=== PATIENT | male | born 1985 | race Caucasian/White ===

== ENCOUNTER → 2020-06-21 | Outpatient (CLI) | payer BC, SELFPAY ==
[2020-06-21 08:25] VITALS: BMI 24.7
[2020-06-21 10:17] LABS: Bacteria 0 SEEN /hpf (None Seen); Mucous, Urine 0 SEEN /hpf (<or=2+); Red Blood Cells-Urine 0 SEEN /hpf (0-5); Squamous Epithelial Cells - UA 0 SEEN /hpf (0-5); White Blood Cells 0 SEEN /hpf (0-5)
[2020-06-21 12:26] LABS: Color, Urine Straw (Yellow); Glucose, Dipstick Normal (Normal); Ketone-Dipstick Negative (Negative); Leukocyte Esterase-Dipstick Negative /ul (Negative); Nitrite-Dipstick Negative (Negative); Occult Blood-Urine 10 /ul (Negative); Protein-Dipstick Negative (Negative); Specific Gravity, Urine 1.005 (1.002-1.030); Urine Bilirubin Dipstick Negative (Negative); Urine Clarity Clear (Clear); Urine Urobilinogen Normal (Normal)
== END | disposition home or self-care (01) ==
LOC: LABSPEC 10:17
PROVIDERS: PCP Internal Medicine; Referring Provider Internal Medicine; Visit Provider Internal Medicine
DX: R10.31 Right lower quadrant pain (principal); R82.998 Other abnormal findings in urine
CPT/HCPCS: 81001

== ENCOUNTER → 2020-06-26 09:48 | Outpatient (CLI) | payer BC, SELFPAY ==
[2020-06-21 08:25] VITALS: BMI 24.7
--- NOTE | 2020-06-26 09:50 | US_ITS ---
STUDY: RENAL ULTRASOUND - COMPLETE REASON FOR EXAM: Male, 34 years old. HEMATURIA TECHNIQUE: Ultrasound evaluation of the kidneys was performed with real-time and static escobedo-scale imaging. COMPARISON: None. FINDINGS: RIGHT KIDNEY: Normal location of the right kidney, which is normal in size. The right kidney measures 9.5 cm x 5.7 cm x 4.9 cm. There is a normal cortex of the right kidney. The renal cortex measures 1.2 cm. There is no right renal mass or cyst. There are no right renal calculi. There is an extra-renal pelvis of the right kidney. There is no distention of the renal calyces. DISTAL RIGHT URETER: There is non-visualization of the distal right ureter. There is no demonstrated right ureterovesical junction calculus. There is a visualized right ureteral jet. LEFT KIDNEY: Normal location of the left kidney, which is normal in size. The left kidney measures 10.5 cm x 4.3 sono by 5.2 cm. There is a normal cortex of the left kidney. The renal cortex measures 1.3 cm. There is no left renal mass or cyst. There are no left renal calculi. There is no left hydronephrosis. DISTAL LEFT URETER: There is non-visualization of the distal left ureter. There is no demonstrated left ureterovesical junction calculus. There is a visualized left ureteral jet. BLADDER: The distended urinary bladder has a volume of 395 ml. There is a normal wall thickness of the distended urinary bladder. There is no demonstrated mass within the urinary bladder. There are no demonstrated bladder calculi. US/Kidney and Bladder IMPRESSION: Normal ultrasound of the kidneys and urinary bladder. Electronically Signed: Maxime Estrada, at 13:33 EST , Service support ,
== END ==
PROVIDERS: PCP Internal Medicine; Referring Provider Internal Medicine; Visit Provider Internal Medicine
DX: R31.9 Hematuria, unspecified (principal)
CPT/HCPCS: 76770

== ENCOUNTER → 2020-07-03 10:36 | Outpatient (CLI) | payer BC, SELFPAY ==
[2020-06-21 08:25] VITALS: BMI 24.7
[2020-07-03 10:37] LABS: Bacteria 0 SEEN /hpf (None Seen); Mucous, Urine 0 SEEN /hpf (<or=2+); Red Blood Cells-Urine 0 SEEN /hpf (0-5); Squamous Epithelial Cells - UA 0 SEEN /hpf (0-5); White Blood Cells 0 SEEN /hpf (0-5)
[2020-07-03 12:25] LABS: Color, Urine Yellow (Yellow); Glucose, Dipstick Normal (Normal); Ketone-Dipstick Negative (Negative); Leukocyte Esterase-Dipstick Negative /ul (Negative); Nitrite-Dipstick Negative (Negative); Occult Blood-Urine 50 /ul (Negative); Protein-Dipstick Negative (Negative); Specific Gravity, Urine 1.005 (1.002-1.030); Urine Bilirubin Dipstick Negative (Negative); Urine Clarity Clear (Clear); Urine Urobilinogen Normal (Normal); Urine pH 6.5 (5.0 - 8.0)
== END ==
PROVIDERS: PCP Internal Medicine; Visit Provider Internal Medicine
DX: R31.29 Other microscopic hematuria (principal)
CPT/HCPCS: 81001

== ENCOUNTER 2020-10-20 13:33 | Outpatient (RCR) | payer BC, SELFPAY ==
[2020-07-05 14:21] VITALS: BMI 24.9
== END 2021-01-02 23:59 ==
LOC: IMMUN 13:33
PROVIDERS: PCP Internal Medicine; Referring Provider Family Medicine; Visit Provider Family Medicine
DX: Z23 Encounter for immunization (principal)
CPT/HCPCS: 0001A; 0002A; 91300

== ENCOUNTER → 2020-11-08 13:45 | Outpatient (CLI) | payer BC, SELFPAY ==
[2020-07-05 14:21] VITALS: BMI 24.9
[2020-11-08 13:48] LABS: Bacteria 0 SEEN /hpf (None Seen); Mucous, Urine 0 SEEN /hpf (<or=2+); Squamous Epithelial Cells - UA 0 SEEN /hpf (0-5)
--- NOTE | 2020-11-08 14:26 | US_ITS ---
STUDY: RENAL ULTRASOUND - COMPLETE REASON FOR EXAM: Male, 35 years old. right lower quad pain, blood in urine TECHNIQUE: Ultrasound evaluation of the kidneys was performed with real-time and static escobedo-scale imaging. COMPARISON: 06/26/2020 FINDINGS: RIGHT KIDNEY: Normal location of the right kidney, which is normal in size. The right kidney measures 9.8 cm. There is a normal cortex of the right kidney. The renal cortex measures 1.4 cm. There is no right renal mass or cyst. Left renal stone in the right renal pelvis with mild hydronephrosis. Correlation with CT would be useful. DISTAL RIGHT URETER: There is non-visualization of the distal right ureter. There is no demonstrated right ureterovesical junction calculus. There is a visualized right ureteral jet. LEFT KIDNEY: Normal location of the left kidney, which is normal in size. The left kidney measures 10.5 cm. There is a normal cortex of the left kidney. The renal cortex measures 1.9 cm. There is no left renal mass or cyst. There are no left renal calculi. There is no left hydronephrosis. DISTAL LEFT URETER: There is non-visualization of the distal left ureter. There is no demonstrated left ureterovesical junction calculus. There is a visualized left ureteral jet. BLADDER: The distended urinary bladder has a volume of 348 ml. The empty urinary bladder has a volume of ml. There is a normal wall thickness of the distended urinary bladder. There is no demonstrated mass within the urinary bladder. There are no demonstrated bladder calculi. US/Kidney and Bladder IMPRESSION: Suspect obstructing stone in the right renal pelvis with mild hydronephrosis. Correlation with stone protocol CT is recommended. Electronically Signed: Marcelo Pitts MD at 15:44 EDT Tel , Service support ,
[2020-11-08 15:12] LABS: Color, Urine Yellow (Yellow); Glucose, Dipstick Normal (Normal); Ketone-Dipstick Negative (Negative); Leukocyte Esterase-Dipstick Negative /ul (Negative); Nitrite-Dipstick Negative (Negative); Occult Blood-Urine 250 /ul (Negative); Protein-Dipstick Negative (Negative); Specific Gravity, Urine 1.005 (1.002-1.030); Urine Bilirubin Dipstick Negative (Negative); Urine Clarity Clear (Clear); Urine Urobilinogen Normal (Normal)
[2020-11-08 15:44] LABS: Red Blood Cells-Urine 10-25 SEEN /hpf (0-5); White Blood Cells 0-5 SEEN /hpf (0-5)
== END ==
PROVIDERS: PCP Internal Medicine; Referring Provider Internal Medicine; Visit Provider Internal Medicine
DX: R31.9 Hematuria, unspecified (principal)
CPT/HCPCS: 76770; 81001

== ENCOUNTER → 2020-11-09 12:25 | Outpatient (CLI) | payer BC, SELFPAY ==
[2020-07-05 14:21] VITALS: BMI 24.9
--- NOTE | 2020-11-09 12:27 | RAD_ITS ---
STUDY: X-RAY - ABDOMEN/PELVIS REASON FOR EXAM: Male, 35 years old. CALCULUS OF KIDNEY TECHNIQUE: Single AP view of the abdomen / pelvis. COMPARISON: None. FINDINGS: Normal visualized lung bases. There is an unremarkable bowel gas pattern. 10 mm calcific opacity medial to the right kidney worrisome for right renal stones possibly within the renal pelvis. Correlation with CT would be useful. Normal soft tissue structures. Normal visualized osseous structures. RAD/Abdomen Single View IMPRESSION: Suspect 10 mm right renal stone possibly in the renal pelvis. CT would be useful. Electronically Signed: Marcelo Pitts MD at 12:50 EDT Tel , Service support ,
== END ==
PROVIDERS: PCP Internal Medicine; Referring Provider Nurse Practitioner Adult Health; Visit Provider Nurse Practitioner Adult Health
DX: N20.0 Calculus of kidney (principal)
CPT/HCPCS: 74018

== ENCOUNTER 2020-11-15 13:23 | Day surgery (SDC) | payer BC, SELFPAY ==
[2020-07-05 14:21] VITALS: BMI 24.9
[2020-11-15] VITALS (7 sets, daily range): BP systolic 124–138; BP diastolic 69–113; PULSE 63–77; RESP 14–16; TEMP 36.5–37.6; O2SAT 100; BMI 24.5
[2020-11-15] MEDS: Lactated Ringers 1,000 ML 100 ML IV (14:00)
[2020-11-15] MEDS: Cefazolin 2 GM in 0.9% Normal Saline 100 ML IV (16:43)
--- NOTE | 2020-11-15 16:45 | PCM.HP.STD ---
Problem List (1) Obstruction of right ureteropelvic junction (UPJ) due to stone Status: Acute History of Present Illness Date of Admission: 11/15/20 Chief Complaint: Right kidney stone obstructive The patient is a 35 year old male with a history of Crohn's who has obstruction on the right proximal ureter with a kidney stone plan to treat the stone today with shockwave lithotripsy possible stent Past Medical History Past Medical History (Chronic Problems): Chronic Problems (Last Updated 06/15/20 @ 10:11 by Kim Morrison) Crohn's disease (Chronic) Seasonal allergies (Chronic) Medical History: Medical History (Last Updated 06/15/20 @ 10:11 by Kim Morrison) Crohn's disease (Chronic) K50.90 Seasonal allergies (Chronic) J30.2 Allergies Sulfa (Sulfonamide Antibiotics) Allergy (Intermediate, Verified 11/13/20 08:16) Hives Home Medications: Ambulatory Orders Medication Instructions Recorded NK 11/13/20 Surgical History: Surgical History (Last Updated 06/15/20 @ 10:12 by Kim Morrison) History of wisdom tooth extraction K08.409 Surgical History: no surgical history Smoking Status: Never smoker Tobacco Use: Non-smoker Review of Systems Constitutional: Denies: Chills, Fever, Weight Change HEENT: Denies: Head Aches, Sinus Congestion, Sinus Drainage Cardiovascular: Denies: Chest Pain, Palpitations Respiratory: Denies: Cough, Shortness of breath at rest, Sputum production Gastrointestinal: Denies: Abdominal Pain, Nausea, Vomiting Genitourinary: Denies: Dysuria Musculoskeletal: Denies: Joint Pain, Joint Tenderness Skin: Denies: Rash, Wounds Neurological: Denies: Numbness, Tingling, Focal weakness Psychiatric: Denies: Anxiety, Depression, Homicidal Ideations, Suicidal Ideations Hematologic/ Lymphatic: Denies: Easy Bruising, Easy Bleeding VTE Information - Inpt Only VTE Present on Admission: No - Physical Exam Vitals/I&O's: Vital Signs Temp Pulse Resp BP Pulse Ox 99.6 F H 75 14 124/84 H 100 11/15/20 13:46 11/15/20 13:46 11/15/20 13:46 11/15/20 13:46 11/15/20 13:46 Oxygen Delivery Method Room Air Weight: 75.2 kg Body Mass Index (BMI) 24.5 General: Alert, Oriented x3, Cooperative HEENT: Atraumatic, PERRLA, EOMI, Normocephalic Neck: Supple, No JVD, Negative Carotid Bruits Lungs: Clear to auscultation, Normal air movement Cardiovascular: Regular rate, No murmurs Abdomen: Bowel Sounds Present, Soft, Non Tender Extremities: No edema, Capillary Refill Less than 3 Seconds Skin: No rashes, No breakdown Musculoskeletal: No Tenderness to Palpation of Joints or Extremities Neurological: Cranial nerves II-XII grossly intact Psych/Mental Status: Normal Affect, Appropriate Microbiology Past 72 Hours 11/14/20 13:05 Interface Orders SARS-CoV-2 Antigen (Rapid) - Final Current Medications Lactated Ringer's () 1,000 mls @ 100 mls/hr IV .Q10H RUDDY Last Admin: 11/15/20 14:00 Dose: 100 mls/hr Documented by: Assessment/Plan All Active Problems (Last Updated 06/15/20 @ 10:11 by Kim Morrison) Obstruction of right ureteropelvic junction (UPJ) due to stone (Acute) Acute sinusitis, unspecified (Acute) URI (upper respiratory infection) (Acute) 35-year-old male with right UPJ stone plan to proceed with shockwave lithotripsy and stent placement, possible stent placement
--- NOTE | 2020-11-15 16:51 | PCM.DC.URO ---
Discharge Diet: No Restrictions Discharge Activity: Return to Normal Activity, May Not Drive - for 2 days. Additional Activity Instructions:: Please be aware that pain medications may cause nausea. You should typically eat light foods as you take your pain medication. Pain medication may cause constipation, if this is a problem for you, please discuss with your doctor. Call your doctor if your incision/area has: Sudden Increased Bleeding Suture Line Care: Avoid Pulling/Pushing, Avoid Pinching/Bending Allergies/Adverse Reactions: Allergies Sulfa (Sulfonamide Antibiotics) Allergy (Intermediate, Verified 11/13/20 08:16) Hives Medications to take at Discharge Cephalexin [Keflex] 500 mg PO Q8 #9 capsule 11/15/20 Hydrocodone Bitart/Apap 5-325 [[place] 5MG-325MG] 1 tablet PO Q4H PRN PRN 7 Days #20 tablet 11/15/20 The following prescriptions were given: Cephalexin [Keflex] 500 mg PO Q8 #9 capsule Transmission Status: Pending to [id number] Hydrocodone Bitart/Apap 5-325 [[place] 5MG-325MG] 1 tablet PO Q4H PRN PRN 7 Days #20 tablet PRN Reason: Pain Transmission Status: Received by [id number] Primary Care Physician: Debbie Crews MD [Primary Care Provider] - Test Results: Test results from this visit will be discussed in further detail at your follow-up appointment, if applicable. Please Follow Up With: Roberto Zhou MD When: please call to make an appointment.
--- NOTE | 2020-11-15 17:10 | OP.PCM_ITS ---
Problem List (1) Obstruction of right ureteropelvic junction (UPJ) due to stone Status: Acute Report of Operation Date of Procedure: 11/15/20 Pre-Operative Diagnosis: Right kidney stone Post-Operative Diagnosis: Same Surgery/Procedure Performed:: right extracorporeal shockwave lithotripsy Description of Surgical Findings:: Patient presents to the hospital for treatment of a kidney stone with shockwave lithotripsy. In the preoperative area and x-ray was done to confirm the location of the stone. The x-ray was reviewed and the stone location was reviewed. In the preoperative setting I spoke with the patient regarding the treatment of the stone how the treatment would be conducted and the expectations after surgery. The patient understands there is a risk of bleeding and infect ion. Also discussed the very rare risk of hematoma or damage to the kidney. We also discussed the risk that the shockwave machine will fail to break the stone adequately and that the patient may need other surgical procedures. We also discussed the possibility that the patient may need a stent after the procedure. After reviewing the procedure with the patient, the patient is signed the consent form all the patient's questions were addressed and was taken back to the operating room for treatment of a kidney stone. Patient was taken back to the operating room, patient was identified by the nursing staff, we identified the side of the treatment and the patient side of treatment had been marked by my initials. The patient underwent general anesthetic and was placed supine on the lithotripter table. We then used fluoroscopy to identify the stone on the Right side. We then positioned the patient under the lithotripter and we used triangulation technique to identify the location of the stone and then we made sure that the stone was engaged in the F2 focal point of F2 Donier lithoprior machine. Once the patient was positioned appropriately and the stone was identified and placed in the F2 focal point of the lithotripter machine we then proceeded with shockwave lithotripsy. In the beginning the shockwave was delivered at a rate of 90 shocks per minute, we monitor the EKG for any ectopy. The power was slowly increased to 5 kV and subsequently at the 7 kV. We then proceeded with the treatment we move the therapy had around during the treatment to make sure the stone stayed in the F2 focal point during the entire treatment. Once the stone had broken up completely then we stopped the treatment a total of about 3000 shockwaves were delivered to the stone under fluoroscopic guidance. At this point the patient's anesthetic was reversed patient was extubated and taken back to the PACU in stable condition. The patient was given instructions to call the office to make an a follow-up appointment. Type of Anesthesia:: General Drains: no stent - Admit VTE Documentation VTE Present on Admission: No VTE Mechan Device Prophylaxis: SCD's
[2020-11-15] MEDS: Ketorolac 15 MG/ML Vial IV (17:41)
[2020-11-15] MEDS: oxyCODONE 5 MG Tablet PO (18:29)
== END 2020-11-15 21:08 | disposition home or self-care (01) ==
LOC: SDC 13:24 → AC 13:25
PROVIDERS: PCP Internal Medicine; Referring Provider Urology; Visit Provider Urology
PROC: (CPT 50590; principal; 2020-11-15 15:05)
DX: N13.5 Crossing vessel and stricture of ureter without hydronephrosis (principal); N20.0 Calculus of kidney; K50.90 Crohn's disease, unspecified, without complications; J30.2 Other seasonal allergic rhinitis
CPT/HCPCS: 50590; 87426; C9803; J7120; J2405

== ENCOUNTER 2020-11-16 02:29 | Emergency (ER) | payer BC, SELFPAY ==
[2020-11-15 13:46] VITALS: BMI 24.5
[2020-11-16 02:29] VITALS: BP 143/82; PULSE 65; RESP 18; TEMP 36.4; O2SAT 100; BMI 24.9
[2020-11-16 02:32] VITALS: BP 143/82; PULSE 65; RESP 18; TEMP 36.4; O2SAT 100
--- NOTE | 2020-11-16 02:35 | ED.VIS.GEN ---
History of Present Illness Chief Complaint: Complaint Informant: Patient Narrative: 35-year-old male presents with concern for right-sided flank pain. Patient had lithotripsy done approximately 9 hours ago at this facility by urologist Dr. Davis. States that he was in considerable pain following the procedure which was controlled with IV pain medications. Is taken to pain pills since getting home and continues to have pain. Unable to eat or drink given the pain. Describes it as sharp and radiating. States he has been urinating normally. Denies any fever or chills. No history of lithotripsy in the past. Past Medical History - Allergies and Home Meds Allergies/Adverse Reactions: Allergies Sulfa (Sulfonamide Antibiotics) Allergy (Intermediate, Verified 11/16/20 02:33) Hives Primary Care Physician: Roberto Zhou MD [STAFF PHYSICIAN] - Keep Richard appointment Debbie Crews MD [Primary Care Provider] - 2 Days Prior records reviewed: Yes Past Medical History: None Surgical History: - - lithotripsy Lives: Spouse/ Significant Other Smoking Status: Never smoker Alcohol: None Drugs: None Review of Systems General: Denies: Chills, Fever, Sweats Eyes: Denies: Visual changes - bilaterally, Diplopia ENT: Denies: Rhinorrhea, Sore throat Cardiovascular: Denies: Chest pain, Palpitations Respiratory: Denies: Dyspnea, Cough, Dyspnea on exertion Gastrointestinal: Reports: Abdominal pain, Nausea. Denies: Vomiting, Diarrhea, Melena, Hematochezia Genitourinary: Denies: Dysuria, Hematuria, Frequency Musculoskeletal: Denies: Back pain, Extremity Pain Skin: Denies: Rash, Wounds Neurological: Denies: Headache, Weakness, Numbness Physical Exam Vital Signs/Narrative: Vital Signs Temp Pulse Resp BP Pulse Ox 11/16/20 02:32 97.6 F L 65 18 143/82 H 100 11/16/20 02:29 97.6 F L 65 18 143/82 H 100 General: Well nourished, Well developed, No Acute Distress Head: Normocephalic, Atraumatic Eyes: Perrl, EOMI ENT: Moist mucous membranes, No rhinorrhea Neck: Supple, Nontender Cardiovascular: Regular rate, Regular rhythm, No murmurs Respiratory: No distress, CTA bilaterally, Chest nontender Abdomen: Soft, Nontender, Nondistended, Normal bowel sounds Back: Nontender, Normal Inspection Extremities: Nontender, No edema Skin: Normal color, No rash Neurological: Alert, Oriented x3, Cranial nerves II-XII grossly intact, Normal Strength, Normal Sensation Psychological: Normal affect, Normal Mood Diagnostic/Tx/Re-eval - Medical Decision Making Patient appears well and nontoxic. Vital signs within normal limits. Benign abdominal exam. Patient given 1 L of normal saline, 1 mg of Dilaudid, and 15 mg of Toradol. On reevaluation of 032 patient is feeling much improved. Wishes to urinate before his discharge. Will follow up with Dr. Davis as scheduled. Stable at time of discharge. ED Disposition - Plan for ED Patient: Disposition: Home or Assisted Living Instructions: Shock Wave Lithotripsy Prescriptions: Ondansetron [Zofran Odt] 4 mg PO Q8H PRN PRN #10 tablet PRN Reason: Nausea Prescription Printed Referrals: Debbie Crews MD [Primary Care Provider] - 2 Days Roberto Zhou MD [STAFF PHYSICIAN] - Keep Richard appointment
[2020-11-16] MEDS: Ketorolac 15 MG/ML Vial IV (02:50)
[2020-11-16] MEDS: Ondansetron 4 MG/2 ML Vial IV (02:50)
[2020-11-16] MEDS: 0.9% Normal Saline 1,000 ML 1000 ML IV (02:51)
[2020-11-16] MEDS: HYDROmorphone 1 MG/ML Syringe IV (02:51)
== END 2020-11-16 04:02 | disposition home or self-care (01) ==
PROVIDERS: Emergency Provider Emergency Medicine; PCP Internal Medicine
DX: G89.18 Other acute postprocedural pain (principal); R10.9 Unspecified abdominal pain; R11.0 Nausea; Z98.890 Other specified postprocedural states
CPT/HCPCS: 96361; 96374; 96375; 99284; J2405

== ENCOUNTER → 2020-11-20 13:30 | Outpatient (CLI) | payer BC, SELFPAY ==
[2020-11-16 02:29] VITALS: BMI 24.9
--- NOTE | 2020-11-20 13:34 | RAD_ITS ---
STUDY: X-RAY - ABDOMEN/PELVIS REASON FOR EXAM: Male, 35 years old. POST KIDNEY STONE SURGERY TECHNIQUE: Single AP view of the abdomen / pelvis. COMPARISON: Comparison is made with prior study dated 11/09/2020. FINDINGS: Normal visualized lung bases. There is a moderate amount of colonic fecal material. The previously seen calculus in the region of the right renal pelvis now is in the right side of the pelvis. This measures 9.1 mm. Normal soft tissue structures. Normal visualized osseous structures. RAD/Abdomen Single View IMPRESSION: The previously seen right proximal calculus is now in the right hemipelvis. Electronically Signed: Maxime Estrada MD at 15:33 EDT , Service support ,
== END ==
PROVIDERS: PCP Internal Medicine; Referring Provider Urology; Visit Provider Urology
DX: N20.0 Calculus of kidney (principal); Z48.816 Encounter for surgical aftercare following surgery on the genitourinary system
CPT/HCPCS: 74018

== ENCOUNTER → 2021-01-01 13:09 | Outpatient (CLI) | payer BC, SELFPAY ==
--- NOTE | 2021-01-01 13:25 | RAD_ITS ---
STUDY: X-RAY - ABDOMEN/PELVIS REASON FOR EXAM: Male, 35 years old. CALCULUS OF KIDNEY TECHNIQUE: Single AP view of the abdomen / pelvis. COMPARISON: Comparison is made with prior study dated 11/20/2020. FINDINGS: Normal visualized lung bases. There is a moderate amount of colonic fecal material. The visualized liver, spleen and kidneys are grossly normal in size and morphology. Normal soft tissue structures. Normal visualized osseous structures. RAD/Abdomen Single View IMPRESSION: The previously seen calculus in the right hemipelvis is not present at this time. Electronically Signed: Maxime Estrada MD at 15:39 EDT , Service support ,
[2021-01-01 16:03] LABS: Anion Gap 7 (5-15); BUN 11 mg/dL (7-18); BUN/Creat Ratio 11.4 RATIO (10-20); Calcium,Total 9.4 mg/dL (8.5-10.1); Chloride 104 mmol/L (98-107); Creatinine, Serum 0.96 mg/dL (0.70-1.30); EST Glomerular Filtration Rate 95 mL/min (>60); Est Glom Filt Rate - Afr Amer 115 mL/min (>60); Glucose 87 mg/dL (74-106); Potassium 3.5 mmol/L (3.5-5.1); Sodium Level 139 mmol/L (136-145)
== END ==
PROVIDERS: PCP Internal Medicine; Referring Provider Urology; Visit Provider Urology
DX: N20.0 Calculus of kidney (principal)
CPT/HCPCS: 36415; 74018; 80048

== ENCOUNTER 2024-05-03 08:30 | Outpatient (RCR) | payer BC, SELFPAY ==
--- NOTE | 2024-04-06 08:57 | HP.PTEVAL ---
Patient's Visit Information Visit Information Visit Information: SVETLANA CARVAJAL is a 38 year old M referred to Physical Therapy by Dr. Debbie Crews MD with a diagnosis of Impingement of the R shoulder. Date of Evaluation: 04/06/24 Physical Therapist: STEFANI Brown Visit Plan Frequency: 2x /Week Duration: 4 Weeks Plan: 2X/week for 8 weeks for scapular stability, RC strength, postural exercises with HEP HEP: scapular retraction, Supine wand flexion, Mid Rows (blue), Corner stretch Subjective Subjective: Pt feels that he strained it doing a house remodel and then just took it easy and then a few weeks ago he was working on a project and the weed eating. The next day he moved his arm out to the R and got a pain down his arm. He has no pain right now. It took a week and half away to go away the last time. It does not feel anything major going on. He never felt like he got his strength back from the original injury. He has no neck pain. He has pain to just below the elbow. He is R handed. He can lay on that shoulder but he feels like that shoulder is weak. He reports that he sits with good posture and tries to stand more. Pain R shoulder pa: Pain Intensity (Out of 10): 0 Objective Objective: R handed: R mat making machine tender strength 85 and L 75 Shoulder AROM: WFL in all planes Posture: Rounded shoulders and increase PPT UE MMT: R shoulder flex 7.2 and L 8.5 R shoulder ABD 7 and L 7.1 R shoulder ER 11.4 and L 12.5 R shoulder IR 7.2 and L 10.4 Tight at end range flexion of B shoulders Balance/Special Test Scores Quick DASH Score: 2.5035 Goals Goal 1:: I HEP Goal Time Frame: 4-6 Weeks Goal 2:: Increase UE strength (UE MMT: R shoulder flex 7.2 and L 8.5 R shoulder ABD 7 and L 7.1 R shoulder ER 11.4 and L 12.5 R shoulder IR 7.2 and L 10.4) Goal Time Frame: 4-6 Weeks Goal 3:: Sit with upright posture during treatment sessions Goal Time Frame: 4-6 Weeks Goal 4:: No recurrent pain with reaching out to the side and opening up the car door Rehabilitation Potential Rehabilitation Potential: Good Anticipated Interventions Patient/Client Instruction: Educate patient on: Condition and Plan of Care For the Purpose of:: To decrease pain, To increase ROM, To improve nutrient delivery to tissue, To improve muscle performance and motor function, To improve ability to perform ADL's, To increase tolerance to activity/condition/position, To improve performance and independence with ADL's, To improve ability of physical actions for home/community/work/leisure, To improve health of tissue and To increase flexibility/ROM Therapeutic Exercise to Include: Strength training, Postural training, Flexibilty training, Passive ROM, Active ROM and Scapular Strength/Stabilization For the Purpose of:: To decrease pain, To increase ROM, To improve nutrient delivery to tissue, To increase oxygenation perfusion, To improve muscle performance and motor function, To improve ability to perform ADL's, To increase tolerance to activity/condition/position, To improve performance and independence with ADL's, To decrease level of supervision to perform tasks, To improve ability of physical actions for home/community/work/leisure, To improve health of tissue and To decrease soft tissue restriction Manual Therapy Techniques to Include: Passive ROM For the Purpose of:: To increase ROM Text: Thank you for the opportunity to evaluate your patient. For Medicare and Medicare HMO plans, please review the plan of care and approve it. It will need to be FAXED BACK to us at [phone] for Medicare purposes. For Medicare only, by signing this I certify the plan of care. Please let me know if there are questions or concerns regarding this plan of care. Physician Signature: Date:
--- NOTE | 2024-05-03 09:11 | HP.PTDCSUM_ITS ---
Discharge Summary D/C summary: It has been my pleasure to treat SVETLANA CARVAJAL referred by Dr. Debbie Crews MD, with the diagnosis of Impingement of the R shoulder for a total of 6 visit(s). Discharge Date: 05/03/24 Please see the following information for a summary of their discharge status. Subjective Subjective: Pt was playing basketball and able to weed eat and his shoulder was a little sore but no pain. He is doing his HEP. He is pleased with his pr ogress. Pain R shoulder pa: Pain Intensity (Out of 10): 0 Overall Improvement % Improvement: 100 Objective Objective/Function: UE MMT: R shoulder flex 10.5 and L 8.5 R shoulder ABD 11.9 and L 7.1 R shoulder ER 15.6 and L 12.5 R shoulder IR 14.7 and L 10.4 Goals Goal 1:: I HEP Goal Progress: Goal Met Goal 2:: Increase UE strength (UE MMT: R shoulder flex 7.2 and L 8.5 R shoulder ABD 7 and L 7.1 R shoulder ER 11.4 and L 12.5 R shoulder IR 7.2 and L 10.4) Goal Progress: Goal Met Goal 3:: Sit with upright posture during treatment sessions Goal Progress: Goal Met Goal 4:: No recurrent pain with reaching out to the side and opening up the car door Goal Progress: Goal Met Plan Plan: DC PT to HEP D/C Information Discharge Comments: DC PT to HEP d/c sentence: If there are questions or concerns regarding this patient's physical therapy, please feel free to call me at [phone]. Thank you for the referral of this patient. Sincerely, Chrissy Ochoa, MPT Balance/Gait/Functional tests Balance/Special Test Scores Quick DASH Score: 2.2725 Improvement % Improvement: 100
== END 2024-05-03 11:06 | disposition home or self-care (01) ==
LOC: PT 08:30
PROVIDERS: PCP Internal Medicine; Referring Provider Internal Medicine; Visit Provider Internal Medicine
DX: M25.811 Other specified joint disorders, right shoulder (principal)
CPT/HCPCS: 97110; 97161; 97530

== ENCOUNTER → 2025-03-14 | Outpatient (CLI) | payer BC, SELFPAY ==
[2025-03-14 10:13] LABS: Hematocrit 43.0 % (40-54); Hemoglobin 14.5 g/dL (13.0-16.5); Immature Granulocytes Count 0.030 X10^3/uL (0.0-0.0); Mean Corp Hgb Conc 33.7 g/dL (32-36); Mean Corpuscular Volume 83.5 fL (80-94); Mean Platelet Vol. 9.8 fl (6.2-12.0); NRBC Flagged by Analyzer 0 % (0-5); Platelet Count 350 K/mm3 (150-450); RBC Distribution Width CV 12.9 % (11.6-14.6); RBC Distribution Width SD 39.3 fl (35.1-43.9); Red Blood Count 5.15 M/mm3 (4.6-6.2); White Blood Count 8.6 K/mm3 (4.4-11.0)
[2025-03-14 11:09] LABS: AST(SGOT) 22 U/L (<=37); Alanine Aminotransfer ALT/SGPT 21 U/L (<=46); Albumin, Serum 4.4 g/dL (3.5-5.0); Alkaline Phosphatase 72 U/L (40-129); Anion Gap 11 (5-15); BUN 11 mg/dL (4-19); BUN/Creat Ratio 11.2 RATIO (10-20); Calcium,Total 9.8 mg/dL (7.6-11.0); Carbon Dioxide 22.9 mmol/L (21.0-32.0); Chloride 104 mmol/L (98-108); Cholesterol 119 mg/dL (<=200); Free T3 2.8 pg/mL (2.18-3.98); Globulin 3.1 g/dL (2.2-4.2); Glucose 99 mg/dL (70-99); Low Density Lipoprotein Calc. 55 mg/dL; Magnesium 2.1 mg/dL (1.5-2.2); Potassium 4.5 mmol/L (3.3-5.1); Triglycerides 105 mg/dL; Very Low Density Lipoprotein 21 mg/dL (5-40); Vitamin B12 212 pg/mL (180-914); Vitamin D,25 Hydroxy 31.4 ng/mL (30-100); cholesterol:hdl ratio screen 2.79
--- OUTSIDE RECORDS SUMMARY | 2025-03-14 21:05 | XMS RPT_ITS | CCD ---
Author Organization [facility] Care Team Providers Care General Internist Name Role Phone Unavailable Primary Care Provider Unavailtiffany Crews MD, Dr. Lewis Primary Care Provider Dr. Debbie Crews MD Referring Provider Humberto Elizondo Attending Provider [phone] Eleonora VU, Dr. Lewis Attending Provider Debbie Crews Primary Care Unavailable Debbie Crews Attending Unavailable Debbie Crews Referring Unavailable Debbie Crews Primary Care Unavailable Debbie Crews Attending Unavailable Debbie Crews Referring Unavailable Debbie Crews Primary Care Unavailable Debbie Crews Attending Unavailable Debbie Crews Referring Unavailable Debbie Crews Primary Care Unavailable Humberto Elizondo Attending Unavailable Debbie Crews Primary Care Unavailable Debbie Crews Attending Unavailable Allergies Allergy Classification Reported Allergen(s) Allergy Type Date of Onset Reaction(s) Facility (2 sources) Sulfonamides (Antibiotic) Allergy to substance [address] [place] [address] (1 source) Sulfonamides (Antibiotic) Drug allergy (disorder) [address] [place] [address] Repository Medications Current Medications Medication Drug Class(es) Dates Sig (Normalized) Sig (Original) [place] (Nk) (1 source) Start: 03-14-2025 [place] (Nk) A ctive March 14, 2025 12:00am Completed/Discontinued Medications Medication Drug Class(es) Dates Sig (Normalized) Sig (Original) acetaminophen 325 mg / HYDROcodone bitartrate 5 mg oral tablet (2 sources) Opioid Agonist Start: 11-15-2020 End: 11-22-2020 Hydrocodone-Aceta minophen 1 TABLET tablet Discontinued 1 {tbl} PO EVERY 4 HOURS NEEDED as needed for Pain 20 7 0 November 15, 2020 November 21, 2020 12:00am November 22, 2020 12:03am Personal history of urinary calculi amoxicillin 500 mg oral capsule (2 sources) Penicillin-class Antibacterial Start: 09-16-2019 End: 09-26-2019 take 2 capsules by mouth twice daily Amoxicillin 500 mg capsule Discontinued 1000 mg PO TWICE A DAY 40 10 0 September 16, 2019 1:00am September 25, 2019 1:00am September 26, 2019 1:10am Start on 09/19/2019 and only if still symptomatic at that time cephalexin 500 mg oral capsule (2 sources) Cephalosporin Antibacterial Start: 11-15-2020 End: 03-25-2024 take 1 capsule by mouth every eight hours Cephalexin 500 MG capsule Discontinued 500 mg PO EVERY 8 HOURS 9 0 November 15, 2020 12:00am March 25, 2024 8:08am doxycycline monohydrate 100 mg oral tablet (2 sources) Tetracycline-class Drug Start: 02-18-2025 End: 02-28-2025 take 1 tablet by mouth twice daily Doxycycline Monohydrate 100 mg tablet Discontinued 100 mg PO TWICE A DAY 20 10 0 February 18, 2025 12:00am February 27, 2025 12:00am February 28, 2025 12:07am ondansetron 4 mg disintegrating oral tablet (2 sources) Serotonin-3 Receptor Antagonist Start: 11-16-2020 End: 03-25-2024 take 1 tablet by mouth every eight hours as needed for nausea Ondansetron 4 MG tablet Discontinued 4 mg PO EVERY 8 HOURS NEEDED as needed for Nausea November 16, 2020 12:00am March 25, 2024 8:08am Problems Active Problems Problem Classification Problem Date Documented Date Episodic/Chronic Calculus of urinary tract (2 sources) Obstruction of pelviureteric junction; Translations: [Calculus of ureter] 11-15-2020 Episodic Conditions associated with dizziness or vertigo (2 sources) Dizziness; Translations: [Dizziness and giddiness] Onset: 03-14-2025 03-14-2025 Episodic Malaise and fatigue (2 sources) Asthenia; Translations: [Weakness] Onset: 03-14-2025 03-14-2025 Episodic Other infections; including parasitic (2 sources) Erythema chronica migrans; Translations: [Lyme disease, unspecified] 02-18-2025 Episodic Other non-traumatic joint disorders (2 sources) Disorder of shoulder; Translations: [Other specified joint disorders, right shoulder] 03-25-2024 Episodic Other skin disorders (1 source) Excessive sweating; Translations: [Generalized hyperhidrosis] 03-14-2025 Episodic Other skin disorders (1 source) Generalized hyperhidrosis; Translations: [Generalized hyperhidrosis] Onset: 03-14-2025 Episodic Other upper respiratory disease (2 sources) Seasonal allergy; Translations: [Other seasonal allergic rhinitis] 06-15-2020 Chronic Other upper respiratory infections (4 sources) Acute sinusitis; Translations: [Acute sinusitis, unspecified] 09-16-2019 Episodic Regional enteritis and ulcerative colitis (2 sources) Crohn's disease; Translations: [Crohn's disease, unspecified, without complications] 06-15-2020 Chronic Past or Other Problems Problem Classification Problem Date Documented Da te Episodic/Chronic Other non-traumatic joint disorders (1 source) Other specified joint disorders, right shoulder; Translations: [Other specified joint disorders, right shoulder] Onset: 05-03-2024 Episodic Results Test Name Value Interpretation Reference Range Facil ity CBC W/Diff, Automatedon 02-25 Absolute Lymph 2.03 X10 3/uL Normal 0.83-4.51 [facility] Comment on above: Performed By: #### L 506.0400, L501.66380, L506.1001, L501.5200, L500.4050, L501.9985, L500.4100, L501.9520, L100.0100, L503.0106 #### [facility] [address] [place], [address] Absolute Neut 5.5 X10 3/uL Normal 2.0-7.7 [facility] Comment on above: Performed By: #### L 506.0400, L501.56660, L506.1001, L501.5200, L500.4050, L501.9985, L500.4100, L501.9520, L100.0100, L503.0106 #### [facility] [address] [place], [address] Basophils/100 WBC (Bld) 0.4 % Normal 0-1 [facility] Comment on above: Performed By: #### L 506.0400, L501.36530, L506.1001, L501.5200, L500.4050, L501.9985, L500.4100, L501.9520, L100.0100, L503.0106 #### [facility] [address] [place], [address] Eosinophils/100 WBC (Bld) 3.0 % Normal 0-5 [facility] Comment on above: Performed By: #### L 506.0400, L501.67351, L506.1001, L501.5200, L500.4050, L501.9985, L500.4100, L501.9520, L100.0100, L503.0106 #### [facility] [address] [facility] [place], [address] Erythrocyte distribution width (RBC) [Ratio] 12.9 % Normal 11.6-14.6 [facility] Comment on above: Performed By: #### L 506.0400, L501.81244, L506.1001, L501.5200, L500.4050, L501.9985, L500.4100, L501.9520, L100.0100, L503.0106 #### [facility] [address] [place], [address] Hematocrit (Bld) [Volume fraction] 43.0 % Normal 40-54 [facility] Comment on above: Performed By: #### L 506.0400, L501.54790, L506.1001, L501.5200, L500.4050, L501.9985, L500.4100, L501.9520, L100.0100, L503.0106 #### [facility] [address] [place], [address] Hemoglobin (Bld) [Mass/Vol] 14.5 g/dL Normal 13.0-16.5 [facility] Comment on above: Performed By: #### L 506.0400, L501.17754, L506.1001, L501.5200, L500.4050, L501.9985, L500.4100, L501.9520, L100.0100, L503.0106 #### [facility] [address] [place], [address] IG% 0.400 Normal 0.0-0.9 [facility] Comment on above: Result Comment: IG% - Immature Granulocytes (promyelocytes, myelocytes and metamyelocytes) > 1% indicates that a LEFT SHIFT is Present. Performed By: #### L 506.0400, L501.43766, L506.1001, L501.5200, L500.4050, L501.9985, L500.4100, L501.9520, L100.0100, L503.0106 #### [facility] [address] [place], [address] Lymphocytes/100 WBC (Bld) 23.7 % Normal 19-41 [facility] Comment on above: Performed By: #### L 506.0400, L501.33546, L506.1001, L501.5200, L500.4050, L501.9985, L500.4100, L501.9520, L100.0100, L503.0106 #### [facility] [address] [place], [address] MCH (RBC) [Entitic mass] 28.2 pg Normal 27.0-32.0 [facility] Comment on above: Performed By: #### L 506.0400, L501.89403, L506.1001, L501.5200, L500.4050, L501.9985, L500.4100, L501.9520, L100.0100, L503.0106 #### [facility] [address] [place], [address] MCHC (RBC) [Mass/Vol] 33.7 g/dL Normal 32-36 [facility] Comment on above: Performed By: #### L 506.0400, L501.97839, L506.1001, L501.5200, L500.4050, L501.9985, L500.4100, L501.9520, L100.0100, L503.0106 #### [facility] [address] [facility] [place], [address] MCV (RBC) [Entitic vol] 83.5 fL Normal 80-94 [facility] Comment on above: Performed By: #### L 506.0400, L501.98237, L506.1001, L501.5200, L500.4050, L501.9985, L500.4100, L501.9520, L100.0100, L503.0106 #### [facility] [address] [facility] [place], [address] Monocytes/100 WBC (Bld) 8.1 % Normal 0-10 [facility] Comment on above: Performed By: #### L 506.0400, L501.11665, L506.1001, L501.5200, L500.4050, L501.9985, L500.4100, L501.9520, L100.0100, L503.0106 #### [facility] [address] [place], [address] Neutrophils/100 WBC (Bld) 64.4 % Normal 47-70 [facility] Comment on above: Performed By: #### L 506.0400, L501.81791, L506.1001, L501.5200, L500.4050, L501.9985, L500.4100, L501.9520, L100.0100, L503.0106 #### [facility] [address] [place], [address] Nucleated RBC (Bld) [#/Vol] 0 10*3/uL Normal 0-5 [facility] Comment on above: Performed By: #### L 506.0400, L501.59414, L506.1001, L501.5200, L500.4050, L501.9985, L500.4100, L501.9520, L100.0100, L503.0106 #### [facility] [address] [place], [address] Platelet mean volume (Bld) [Entitic vol] 9.8 fL Normal 6.2-12.0 [facility] Comment on above: Performed By: #### L 506.0400, L501.88618, L506.1001, L501.5200, L500.4050, L501.9985, L500.4100, L501.9520, L100.0100, L503.0106 #### [facility] [address] [place], [address] Platelets (Bld) [#/Vol] 350 10*3/uL Normal 150-450 [facility] Comment on above: Performed By: #### L 506.0400, L501.84658, L506.1001, L501.5200, L500.4050, L501.9985, L500.4100, L501.9520, L100.0100, L503.0106 #### [facility] [address] [place], [address] RBC (Bld) [#/Vol] 5.15 10*6/uL Normal 4.6-6.2 [facility] Comment on above: Performed By: #### L 506.0400, L501.41844, L506.1001, L501.5200, L500.4050, L501.9985, L500.4100, L501.9520, L100.0100, L503.0106 #### [facility] [address] [place], [address] RDW SD 39.3 fl Normal 35.1-43.9 [facility] Comment on above: Performed By: #### L 506.0400, L501.96573, L506.1001, L501.5200, L500.4050, L501.9985, L500.4100, L501.9520, L100.0100, L503.0106 #### [facility] [address] [place], [address] WBC (Bld) [#/Vol] 8.6 10*3/uL Normal 4.4-11.0 [facility] Comment on above: Performed By: #### L 506.0400, L501.12564, L506.1001, L501.5200, L500.4050, L501.9985, L500.4100, L501.9520, L100.0100, L503.0106 #### [facility] [address] [place], [place], [address] Comprehensive [facility] 03-14-2025 Albumin [Mass/Vol] 4.4 g/dL Normal 3.5-5.0 [facility] Comment on above: Performed By: #### L 506.0400, L501.55036, L506.1001, L501.5200, L500.4050, L501.9985, L500.4100, L501.9520, L100.0100, L503.0106 #### [facility] [address] [place], [address] Albumin/Globulin [Mass ratio] 1.4 {ratio} Normal 0.9-2.4 [facility] Comment on above: Performed By: #### L 506.0400, L501.13986, L506.1001, L501.5200, L500.4050, L501.9985, L500.4100, L501.9520, L100.0100, L503.0106 #### [facility] [address] [place], [address] (228) ALK PHOS 72 U/L Normal 40-129 [facility] Comment on above: Performed By: #### L 506.0400, L501.92729, L506.1001, L501.5200, L500.4050, L501.9985, L500.4100, L501.9520, L100.0100, L503.0106 #### [facility] [address] [place], [address] ALT [Catalytic activity/Vol] 21 U/L Normal <=46 [facility] Comment on above: Performed By: #### L 506.0400, L501.33202, L506.1001, L501.5200, L500.4050, L501.9985, L500.4100, L501.9520, L100.0100, L503.0106 #### [facility] [address] [place], [address] AST [Catalytic activity/Vol] 22 U/L Normal <=37 [facility] Comment on above: Performed By: #### L 506.0400, L501.70265, L506.1001, L501.5200, L500.4050, L501.9985, L500.4100, L501.9520, L100.0100, L503.0106 #### [facility] [address] [facility] [place], [address] Bilirubin [Mass/Vol] 0.44 mg/dL Normal 0.00-1.30 [facility] Comment on above: Performed By: #### L 506.0400, L501.95051, L506.1001, L501.5200, L500.4050, L501.9985, L500.4100, L501.9520, L100.0100, L503.0106 #### [facility] [address] [place], [address] BUN/CRE 11.2 RATIO Normal 10-20 [facility] Comment on above: Performed By: #### L 506.0400, L501.34061, L506.1001, L501.5200, L500.4050, L501.9985, L500.4100, L501.9520, L100.0100, L503.0106 #### [facility] [address] [place], [address] Calcium [Mass/Vol] 9.8 mg/dL Normal 7.6-11.0 [facility] Comment on above: Performed By: #### L 506.0400, L501.82132, L506.1001, L501.5200, L500.4050, L501.9985, L500.4100, L501.9520, L100.0100, L503.0106 #### [facility] [address] [place], [address] Chloride [Moles/Vol] 104 mmol/L Normal 98-108 [facility] Comment on above: Performed By: #### L 506.0400, L501.55290, L506.1001, L501.5200, L500.4050, L501.9985, L500.4100, L501.9520, L100.0100, L503.0106 #### [facility] [address] [place], [address] CO2 [Moles/Vol] 22.9 mmol/L Normal 21.0-32.0 [facility] Comment on above: Performed By: #### L 506.0400, L501.78578, L506.1001, L501.5200, L500.4050, L501.9985, L500.4100, L501.9520, L100.0100, L503.0106 #### [facility] [address] [place], [place], [id number] (402) Creatinine [Mass/Vol] 1.02 mg/dL Normal 0.70-1.20 [facility] Comment on above: Performed By: #### L 506.0400, L501.21578, L506.1001, L501.5200, L500.4050, L501.9985, L500.4100, L501.9520, L100.0100, L503.0106 #### [facility] [address] [place], [address] (036) GAP 11 Normal 5-15 [facility] Comment on above: Performed By: #### L 506.0400, L501.40054, L506.1001, L501.5200, L500.4050, L501.9985, L500.4100, L501.9520, L100.0100, L503.0106 #### [facility] [address] [place], [address] (852) GFR/1.73 sq M.predicted among non-blacks MDRD (S/P/Bld) [Vol rate/Area] 96 mL/min/{1.73_m2} Normal >60 [facility] Comment on above: Result Comment: mL/m in/1.73m2 CKD-EPI Creatinine Equation (2020) Performed By: #### L 506.0400, L501.06975, L506.1001, L501.5200, L500.4050, L501.9985, L500.4100, L501.9520, L100.0100, L503.0106 #### [facility] [address] [place], [place], [phone] (783) Globulin (S) [Mass/Vol] 3.1 g/dL Normal 2.2-4.2 [facility] Comment on above: Performed By: #### L 506.0400, L501.85898, L506.1001, L501.5200, L500.4050, L501.9985, L500.4100, L501.9520, L100.0100, L503.0106 #### [facility] [address] [place], [address] Glucose [Mass/Vol] 99 mg/dL Normal 70-99 [facility] Comment on above: Performed By: #### L 506.0400, L501.95561, L506.1001, L501.5200, L500.4050, L501.9985, L500.4100, L501.9520, L100.0100, L503.0106 #### [facility] [address] [place], [address] Potassium [Moles/Vol] 4.5 mmol/L Normal 3.3-5.1 [facility] Comment on above: Performed By: #### L 506.0400, L501.00617, L506.1001, L501.5200, L500.4050, L501.9985, L500.4100, L501.9520, L100.0100, L503.0106 #### [facility] [address] [place], [address] Sodium [Moles/Vol] 138 mmol/L Normal 133-145 [facility] Comment on above: Performed By: #### L 506.0400, L501.50347, L506.1001, L501.5200, L500.4050, L501.9985, L500.4100, L501.9520, L100.0100, L503.0106 #### [facility] [address] [place], [address] T PROT 7.5 g/dL Normal 5.9-8.4 [facility] Comment on above: Performed By: #### L 506.0400, L501.30468, L506.1001, L501.5200, L500.4050, L501.9985, L500.4100, L501.9520, L100.0100, L503.0106 #### [facility] [address] [place], [address] Urea nitrogen [Mass/Vol] 11 mg/dL Normal 4-19 [facility] Comment on above: Performed By: #### L 506.0400, L501.54717, L506.1001, L501.5200, L500.4050, L501.9985, L500.4100, L501.9520, L100.0100, L503.0106 #### [facility] [address] [place], [address] Free T3on 03-14-2025 Free T3 [Mass/Vol] 2.8 pg/mL Normal 2.18-3.98 [facility] Comment on above: Performed By: #### L 506.0400, L501.05569, L506.1001, L501.5200, L500.4050, L501.9985, L500.4100, L501.9520, L100.0100, L503.0106 #### [facility] [address] [place], [address] Hemoglobin A1con 03-14-2025 HbA1c (Bld) [Mass fraction] 5.2 % Normal <=5.6 [facility] Comment on above: Result Comment: Norm al < 5.7 % Prediabetic 5.7 - 6.4 % Diabetic >or= 6.5 % Please note range changes. Performed By: #### L 506.0400, L501.99808, L506.1001, L501.5200, L500.4050, L501.9985, L500.4100, L501.9520, L100.0100, L503.0106 #### [facility] [address] [place], [address] Lipid Profileon 03-14-2025 CHOL:HDL 2.79 Normal [facility] Comment on above: Performed By: #### L 506.0400, L501.96019, L506.1001, L501.5200, L500.4050, L501.9985, L500.4100, L501.9520, L100.0100, L503.0106 #### [facility] [address] [place], [place], [phone] (346) Cholesterol [Mass/Vol] 119 mg/dL Normal <=200 [facility] Comment on above: Result Comment: Chol esterol level, Desirable <200 mg/dL Borderline high cholesterol 200-239 mg/dL High cholesterol >=240 mg/dL Recommendations of the NCEP Adult Treatment Panel for the following risk-cutoff thresholds for the [place] population. Performed By: #### L 506.0400, L501.53743, L506.1001, L501.5200, L500.4050, L501.9985, L500.4100, L501.9520, L100.0100, L503.0106 #### [facility] [address] [place], [address] (805) Cholesterol in HDL [Mass/Vol] 43 mg/dL Normal [facility] Comment on above: Result Comment: Camille onal Cholesterol Education Program (NCEP) guidelines: <40 mg/dL: Low HDL-cholesterol (major risk factor for CHD) >= 60 mg/dL: High HDL-cholesterol (negative risk factor for CHD) HDL-cholesterol is affected by a number of factors, e.g. smoking, exercise, hormones, sex and age. Performed By: #### L 506.0400, L501.05419, L506.1001, L501.5200, L500.4050, L501.9985, L500.4100, L501.9520, L100.0100, L503.0106 #### [facility] [address] [place], [address] Cholesterol in LDL [Mass/Vol] 55 mg/dL Normal [facility] Comment on above: Result Comment: Bord xzykov=302-304 mg/dL Higher Vsxl=381 mg/dL or greater Friedwald Equation for LDL-C Performed By: #### L 506.0400, L501.45047, L506.1001, L501.5200, L500.4050, L501.9985, L500.4100, L501.9520, L100.0100, L503.0106 #### [facility] [address] [place], [place], [id number] Cholesterol in VLDL [Mass/Vol] 21 mg/dL Normal 5-40 [facility] Comment on above: Performed By: #### L 506.0400, L501.01978, L506.1001, L501.5200, L500.4050, L501.9985, L500.4100, L501.9520, L100.0100, L503.0106 #### [facility] [address] [place], [place], [id number] Triglyceride [Mass/Vol] 105 mg/dL Normal [facility] Comment on above: Result Comment: The drugs N-Acetylcysteine and Metamizole may falsely depress this assay. Normal range: <150 mg/dL Borderline High: 150-199 mg/dL High: 200-499 mg/dL Very High: >500 mg/dL Performed By: #### L 506.0400, L501.63412, L506.1001, L501.5200, L500.4050, L501.9985, L500.4100, L501.9520, L100.0100, L503.0106 #### [facility] [address] [place], [place], [id number] /Antoine 03-14-2025 /ANATOLY.ROCHELLE [facility] [address] [place], [place] [address] OFFICE VISIT Date of Service: 03/14/25 MR#: [id number] Acct: [id number] Name: SVETLANA CARVAJAL Rep #: [id number] : 1985 Provider: Dr. Debbie mcgovern MD Age/Sex: 39/M [place] [facility] Status: Signed Intake Vital Signs 02/18/25 11:04 03/14/25 08:32 Height 5 ft 9 in 5 ft 9 in Weight: 171 lb 6 oz 164 lb 8 oz BMI 25.2 24.3 BP 100/70 136/78 H Blood Pressure Location Lt brachial Position Sitting Sitting Respiration 16 16 Pulse 84 75 Pulse Source Monitor Temp 98.5 F 98.2 F Temp Source Oral Temporal Pulse Oximetry (%) 98 98 Oxygen Delivery Method room air room air Intake Visit Reasons: Fatigue, Lightheaded Chief Complaint: Fatigue, lightheaded Oil Treater Required: No Accompanied by: Self Is patient in pain?: No Allergies Sulfa (Sulfonamide Antibiotics) Allergy (Intermediate, Verified 03/14/25 08:24) Hives Medications ???Medication ???Instructions ???Recorded ???Confirmed ???Type NK 03/14/25 03/14/25 History PFSH Medical History Impingement of right shoulder Crohn's disease Seasonal allergies Surgical History History of wisdom tooth extraction Family History Grandmother Diabetes Grandfather Myocardial infarction, Onset Age: 80 Other Heart disease Hyperlipemia Hypertension Melanoma Social History Smoking Status: Never smoker alcohol intake: current alcohol intake frequency: holidays/special occasions only substance use type: does not use what type of physical activity do you participate in: running and other details: Hiking HPI HPI Chief Complaint: Fatigue, lightheaded Details: SVETLANA CARVAJAL, is a 39 M who presents to the office today for an acute care follow-up visit. Mr. Carvajal is gentleman who does have a history of Crohn's disease that has been very stable. He is not on any active medications and has not been for a long time. He has done a lot through dietary management, periodic fasts which has helped considerably over the years. He is much healthier than he was in the past when he had active Crohn's diagnosed. It has been perhaps 5 years or so since he has seen supervisor rides. He did have colonoscopy last performed in 2016. He presents however today because of a variety of symptoms. Up until he developed a rash on his right lower leg, for which she went to urgent care and was diagnosed with erythema migrans, and treated with doxycycline he was doing well he felt. When he went to urgent care, he was still doing well but had the rash. He does have a history of tick bite. Several weeks prior he had another tick bite on the upper right leg, and he removed a nymph tick, presumably black leg a tick. He felt that came off within 24 hours of acquiring it. He did not see a tick prior to developing the erythema migrans rash on the leg. When he went to urgent care, diagnosed again with erythema migrans and treated with doxycycline, 100 mg p.o. twice daily x 10 days. He called our office and requested that we get lab work. He was advised to check Lyme testing, after a few weeks after treatment as he did want to confirm Lyme. In any event, since then, he has had a variety of symptoms including seemingly excessive fatigue, lightheaded feeling. The erythema migrans diagnosis was I believe February 18. Again after that, he has noted a constellation of symptoms such as a sense of excess fatigue, tiredness with usual activities. Perhaps a little bit of dizziness intermittently. Feels really hot at times, sweating easily, clammy feeling at times. No documented fever. Usually the sweating has just been in the sense of excess sweating in what would normally be usual work situations where he would have mild sweating. No nighttime sweats per se but feels hot at night at times and sometimes will even get up and go to a different bed to sleep. He has not had any additional rashes. No joint pains, joint aches, arthralgias. No palpitations, fluttering in the chest. He and his spouse will be having child upcoming this year. Review of systems per chart. No destiny chest pain or discomfort. Has had perhaps some anxiousness symptoms that he had not had recently although had perhaps been in the past. This would include s ome feeling of anxiety in the arms. Physical exam. Vital signs on chart. EOMI. PERRLA. Sclera are clear. TMs are unremarkable with normal light reflexes. Canals are unremarkable. Posterior pharynx is unremarkable. Good dentition. No cervical or supraclavicular lymph nodes enlarged or tender. No clear thyromegaly. No thy (more content not included)... Normal [facility] Magnesiumon 03-14-2025 Magnesium [Mass/Vol] 2.1 mg/dL Normal 1.5-2.2 [facility] Comment on above: Performed By: #### L 506.0400, L501.95284, L506.1001, L501.5200, L500.4050, L501.9985, L500.4100, L501.9520, L100.0100, L503.0106 #### [facility] [address] [place], [place], [id number] T4 Free Directon 03-14-2025 T4 FREE DIRECT 1.30 ng/dL Normal 0.76-1.46 [facility] Comment on above: Performed By: #### L 506.0400, L501.89550, L506.1001, L501.5200, L500.4050, L501.9985, L500.4100, L501.9520, L100.0100, L503.0106 ####[facility] [id number] [place], [place], [id number] Thyroid Stim Hormone (TSH)on 03-14-2025 TSH 2.350 uIU/mL Normal 0.300-4.200 [facility] Comment on above: Performed By: #### L 506.0400, L501.53417, L506.1001, L501.5200, L500.4050, L501.9985, L500.4100, L501.9520, L100.0100, L503.0106 #### [facility] [address] [place], [place], [id number] Vitamin B12on 03-14-2025 Cobalamin (Vitamin B12) [Mass/Vol] 212 pg/mL Normal 180-914 [facility] Comment on above: Performed By: #### L 506.0400, L501.56268, L506.1001, L501.5200, L500.4050, L501.9985, L500.4100, L501.9520, L100.0100, L503.0106 ####[facility] [address] [place], [place], [id number] Vitamin D,25 Hydroxyon 03-14 Vitamin D 25-OH 31.4 ng/mL Normal 30-100 [facility] Comment on above: Result Comment: Jolene min D Status Deficiency: <20 ng/mL (50nmol/L) Insufficiency: 20-30 ng/mL (50-75 nmol/L) Sufficiency: 30-100 ng/mL (75-250 nmol/L) Toxicity: >100 ng/mL (>250 nmol/L) Performed By: #### L 506.0400, L501.51229,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
[2025-03-15 14:09] LABS: Lyme Scn Total Ab w/Rflx Positive (Negative)
== END | disposition home or self-care (01) ==
PROVIDERS: PCP Internal Medicine; Referring Provider Internal Medicine; Visit Provider Internal Medicine
DX: A69.20 Lyme disease, unspecified (principal); Z13.220 Encounter for screening for lipoid disorders; R42 Dizziness and giddiness; R53.1 Weakness; R61 Generalized hyperhidrosis; E55.9 Vitamin D deficiency, unspecified; E53.8 Deficiency of other specified B group vitamins
CPT/HCPCS: 36415; 80053; 80061; 82306; 82607; 83036; 83735; 84439; 84443; 84481; 85025; 86618

== ENCOUNTER → 2025-07-12 | Outpatient (CLI) | payer BC, SELFPAY ==
[2025-07-12 14:50] LABS: Mucous, Urine 0 SEEN /hpf (<or=2+); Red Blood Cells-Urine 0 SEEN /hpf (0-5); Squamous Epithelial Cells - UA 0 SEEN /hpf (0-5)
[2025-07-12 16:37] LABS: PSA,Total- Diagnostic 0.94 ng/mL (0.00-4.00)
[2025-07-12 17:01] LABS: Color, Urine Straw (Yellow); Glucose, Dipstick Normal (Normal); Ketone-Dipstick Negative (Negative); Leukocyte Esterase-Dipstick Negative /ul (Negative); Nitrite-Dipstick Negative (Negative); Occult Blood-Urine Negative /ul (Negative); Protein-Dipstick Negative (Negative); Specific Gravity, Urine 1.010 (1.002-1.030); Urine Bilirubin Dipstick Negative (Negative)
== END | disposition home or self-care (01) ==
LOC: LAB 14:43
PROVIDERS: PCP Internal Medicine; Referring Provider Internal Medicine; Visit Provider Internal Medicine
DX: R30.0 Dysuria (principal)
CPT/HCPCS: 36415; 81001; 84153; 87086; 87088